=== PATIENT | male | born 2000 | race Caucasian/White ===

== ENCOUNTER 2020-05-13 13:23 | Emergency (ER) | payer BC, SELFPAY ==
[2020-05-13 13:31] VITALS: BP 113/69; PULSE 57; RESP 16; TEMP 36.4; O2SAT 100
--- NOTE | 2020-05-13 13:40 | ED.GENADULT ---
HPI - General Adult General Chief complaint: Urogenital-Male Stated complaint: POS UTI Time Seen by Provider: 05/13/20 13:40 Source: patient and RN notes reviewed Mode of arrival: ambulatory Limitations: no limitations History of Present Illness HPI narrative: 19-year-old male presents with complaints of dysuria for 1-2 days. Dysuria consist of intermittent right lower quadrant pain, cloudy, burning with urination, decrease urine, and urgency.? No treatment.? Denies fever or chills.? Denies nausea and vomiting. No significant genital pain.? No genital discharge.? No concerns for STDs. No flank pain.? Exacerbating factors urinating.? Denies hematuria or genital bleeding.? Tolerating liquids well.? Remains active. The patient reports he have not been diagnosed with COVID-19. The patient reports he is not waiting for the results of a COVID-19 lab test. The patient reports he do not have fever, chills, weakness, or fatigue. The patient reports he do not have a new or worsening cough or shortness of breath. Denies chest pain. The patient reports he do not have any rhinorrhea, congestion, loss of taste, sore throat, and diarrhea. Denies recent traveling. Denies concerns for COVID-19 or exposures been home with limited outdoor exposure except for essential household needs and return home. At this time, patient is not suspected of having COVID-19. Some parts of this dictation were generated by voice recognition software and may contain typographical and/or grammatical inaccuracies. Related Data Home Medications Medication Instructions Recorded Confirmed dextroamphetamine-amphetamine 05/13/20 hydroxyzine HCl 05/13/20 methylphenidate HCl 05/13/20 Allergies Allergy/AdvReac Type Severity Reaction Status Date / Time No Known Allergies Allergy Mild Verified 02/19/14 11:15 Review of Systems Review of Systems: Narrative: CONSTITUTIONAL: Denies fever, chills, sweats. EYES: Denies visual changes, redness, discharge. ENT: Denies rhinorrhea, congestion, sore throat, otalgia. CARDIOVASCULAR: Denies chest pain, palpitations, edema. RESPIRATORY: Denies dyspnea, wheezing, cough GASTROINTESTINAL: Complains of intermittent right lower quadrant abdominal pain. Denies nausea, vomiting, diarrhea. GENITOURINARY: Complains of dysuria (cloudy, burning, small amount, and urgency). Denies hematuria, abnormal discharge. SKIN: Denies rash or itching. MUSCULOSKELETAL: Denies acute back pain, joint pain, or myalgia. NEUROLOGIC: Denies numbness or focal weakness. PSYCHIATRIC: Denies anxiety or depression. All other systems reviewed are negative, except as documented in HPI and below. [facility] Past Medical History Medical History (Updated 05/13/20 @ 14:08 by MIKA Parmar) ADHD (attention deficit hyperactivity disorder) Asthma Elbow fracture, left Surgical History Surgical History (Updated 05/13/20 @ 14:08 by MIKA Parmar) History of elbow surgery LT Family History Family History (Updated 05/13/20 @ 14:09 by MIKA Parmar) Father Hypertension Smoker Mother Alive and well Social History Social History (Updated 05/13/20 @ 14:10 by MIKA Parmar) Smoking status: Never smoker Tobacco type: cigarettes Second hand tobacco smoke exposure: No Alcohol intake: current Substance use: current Substance use type: marijuana Living arrangements: with family Occupation/Education: student Gender identity (if verbalized by the patient): Male Sexual Orientation (if Verbalized by the Patient): Straight or Heterosexual Comments At time of signature, agree with nurse past medical, surgical, social, and family history.? There is no relevant family history pertinent to the presenting complaint. Exam Narrative: Exam Narrative: GENERAL: This is a well-nourished, well-developed patient, in no apparent distress.? Talks in full sentences and ambulates with steady gait without dyspnea.
== END 2020-05-13 13:58 | disposition home or self-care (01) ==
PROVIDERS: Emergency Provider Nurse Practitioner Family
DX: R31.9 Hematuria, unspecified (principal); F90.9 Attention-deficit hyperactivity disorder, unspecified type; J45.909 Unspecified asthma, uncomplicated
CPT/HCPCS: 81003; 87086; 99213; G0463

== ENCOUNTER 2020-11-13 12:36 | Emergency (ER) | payer BC, SELFPAY ==
[2020-11-13 12:40] VITALS: BP 119/72; PULSE 76; RESP 12; TEMP 37.1; O2SAT 99
--- NOTE | 2020-11-13 12:59 | ED.SKABFB ---
HPI - Skin/Abscess/Foreign Bdy General Chief complaint: Skin/Abscess/Foreign Body Stated complaint: tick bite Time Seen by Provider: 11/13/20 12:53 Source: patient and old records reviewed Mode of arrival: ambulatory Limitations: no limitations History of Present Illness HPI narrative: Patient presents today complaining of a tick bite to his left forearm 2 days ago. He is unsure how long the tick was on him. States he got a rash surrounding the tick bite yesterday. He has tried nothing for symptoms. The rash does itch. Denies any additional symptoms to include fever, pain, joint aches, sweats or chills, drainage. MD complaint: rash and insect bite/sting Related Data Home Medications Medication Instructions Recorded Confirmed dextroamphetamine-amphetamine 05/13/20 Allergies Allergy/AdvReac Type Severity Reaction Status Date / Time No Known Allergies Allergy Mild Verified 11/13/20 12:40 Review of Systems Review of Systems: Narrative: CONSTITUTIONAL: Denies body aches, fever, chills, or sweats. EYES: Denies visual changes, redness, or discharge. ENT: Denies rhinorrhea, congestion, sore throat, or otalgia. CARDIOVASCULAR: Denies chest pain, palpitations, or edema. RESPIRATORY: Denies cough or dyspnea. GASTROINTESTINAL: Denies abdominal pain, nausea, vomiting, or diarrhea. GENITOURINARY: Denies dysuria or hematuria. SKIN: + Tick bite, rash MUSCULOSKELETAL: Denies back pain, joint pain, or myalgia. NEUROLOGIC: Denies headache, numbness, tingling, or weakness. PSYCH: Denies depression or anxiety. [facility] Past Medical History Medical History (Updated 11/13/20 @ 13:00 by Jael Mason, MIKA, ) ADHD (attention deficit hyperactivity disorder) Asthma Elbow fracture, left Surgical History Surgical History (Updated 05/13/20 @ 14:08 by MIKA Parmar) History of elbow surgery LT Family History Family History (Updated 05/13/20 @ 14:09 by MIKA Parmar) Father Hypertension Smoker Mother Alive and well Social History Social History (Updated 05/13/20 @ 14:10 by MIKA Parmar) Smoking status: Never smoker Tobacco type: cigarettes Second hand tobacco smoke exposure: No Alcohol intake: current Substance use: current Substance use type: marijuana Gender identity (if verbalized by the patient): Male Comments At time of signature, I have reviewed and agree with nursing past medical, surgical, social and family history unless otherwise noted. Please see nursing chart for further information. There is no relevant family history pertinent to the presenting complaint Exam Narrative: Exam Narrative: GENERAL: Well-appearing, well-nourished, and in no acute distress. HEAD: Normocephalic, atraumatic. EYES: EOMI. No redness or drainage. Conjunctivae normal. ENT: Mucous membranes pink and moist. NECK: Normal AROM. CHEST: No respiratory distress. EXTREMITIES: Normal range of motion. No edema. SKIN: Warm, dry. Capillary refill normal. Normal skin turgor. Patient has a small puncture wound to the anterior left forearm. He has an erythematous papular rash to the distal half of the anterior left forearm. No induration or drainage or signs of bacterial infection. NEURO: No focal deficits. Alert and oriented x3. Gait steady. PSYCH: Normal affect. No signs of depression or anxiety. Course Vital Signs Vital signs: Vital Signs Temperature 98.8 F 11/13/20 12:40 Pulse Rate 76 11/13/20 12:40 Respiratory Rate 12 11/13/20 12:40 Blood Pressure 119/72 11/13/20 12:40 Pulse Oximetry 99 11/13/20 12:40 Temperature 98.8 F 11/13/20 12:40 Pulse Rate 76 11/13/20 12:40 Respiratory Rate 12 11/13/20 12:40 Blood Pressure 119/72 11/13/20 12:40 Pulse Oximetry 99 11/13/20 12:40 Reviewed MDM - Skin/Abscess/Foreign Bdy Differential Diagnosis Differential diagnosis: Likely abscess of skin or subcutaneous tissue, urticaria, cellulitis, ecz
== END 2020-11-13 13:03 | disposition home or self-care (01) ==
PROVIDERS: Emergency Provider Nurse Practitioner
DX: L25.9 Unspecified contact dermatitis, unspecified cause (principal); F90.9 Attention-deficit hyperactivity disorder, unspecified type; J45.909 Unspecified asthma, uncomplicated
CPT/HCPCS: 99213; G0463

== ENCOUNTER → 2022-06-11 07:48 | Outpatient (CLI) | payer BC, SELFPAY ==
--- NOTE | ~2022-06-11 | US_ITS ---
EXAMINATION: US abdomen complete DATE: 06/11/2022 08:10 INDICATION: Hereditary hemachromatosis TECHNIQUE: Multiple grayscale and Doppler ultrasound images of the abdomen were obtained. COMPARISON: None available FINDINGS: The head and body of the pancreas are normal. The pancreatic tail is obscured by bowel gas. The liver is normal with normal echogenicity and echotexture. No surface nodularity. Normal hepatope sunday flow in the main portal vein. The gallbladder is normal with no abnormal wall thickening, pericho lecystic fluid or stones. The normal common bile duct measures 3 mm. There was no sonographic Medeiros sign. The visualized portions of the aorta and inferior vena cava are normal. The right kidney measures 10.7 x 4.4 x 6.0 cm. The left kidney measures 10.7 x 4.8 x 5.1 cm. The kidn eys demonstrate normal parenchymal echogenicity. There is no hydronephrosis. The spleen is normal in appearance and measures 11.1 cm. IMPRESSION: 1. Unremarkable abdominal ultrasound. Reviewed, dictated and finalized at location L. REFINER
== END ==
PROVIDERS: PCP Emergency Medicine; Visit Provider Emergency Medicine
DX: E83.110 Hereditary hemochromatosis (principal)
CPT/HCPCS: 76700

== ENCOUNTER → 2023-08-08 16:28 | Outpatient (CLI) | payer OTHER, SELFPAY ==
--- NOTE | ~2023-08-08 | XR_ITS ---
EXAMINATION: XR lumbar spine 2-3V, XR sacroiliac joints min 3V DATE: 08/08/2023 17:01 INDICATION: Muscle spasms of the back TECHNIQUE: 1. Anteroposterior and lateral views of the lumbar spine, and cone-down lateral view of the lumbosacr al junction were obtained. 2. AP and left and right oblique views of the bilateral sacroiliac joints were obtained. COMPARISON: None. FINDINGS: 90 degree lumbar levocurvature. Sagittal alignment is normal. Vertebral body and disc heights are nor mal. Minimal to mild osteoarthritis at a few of the lumbar facet joints. No fractures. Sacral arches are intact. Bilateral hip and sacral iliac joint spaces are normal. No erosions to suggest inflammato ry sacroiliitis. Bilateral psoas shadows are normal. Normal bowel gas pattern. Lung bases are clear. Heart size is normal. IMPRESSION: 1. 9 degrees lumbar levocurvature with minimal to mild facet osteoarthritis. 2. Normal bilateral sacroiliac and hip joints. Reviewed, dictated and finalized at location A. SIGN ERECTOR IMPRESSION: 1. 9 degrees lumbar levocurvature with minimal to mild facet osteoarthritis. 2. Normal bilateral sacroiliac and hip joints.
== END ==
PROVIDERS: PCP Emergency Medicine; Visit Provider Emergency Medicine
DX: M41.86 Other forms of scoliosis, lumbar region (principal); M47.896 Other spondylosis, lumbar region
CPT/HCPCS: 72100; 72202